=== PATIENT | male | born 1980 | race Caucasian/White ===

== ENCOUNTER 2024-06-07 17:18 | Emergency (ER) | payer SELFPAY ==
[~2024-06-07] VITALS: Ht 180.3 cm; Wt 99.8 kg
[2024-06-07 17:20] VITALS: PULSE 92; RESP 18; TEMP 98.2
[2024-06-07] MEDS ORDERED: TRAMADOL HCL 50 MG TAB PO ONE (18:00)
[2024-06-07] MEDS ORDERED: IBUPROFEN800 MG PO (18:42)
[2024-06-07] MEDS ORDERED: PEPCID20 MG PO (18:47)
[2024-06-07 19:25] VITALS: BP 121/62; PULSE 71; RESP 18; TEMP 98.2; O2SAT 98
== END 2024-06-07 19:29 | disposition home or self-care (01) ==
LOC: FSED 17:21
DX: M25.561 Pain in right knee (principal); W20.8XXA Other cause of strike by thrown, projected or falling object, initial encounter; Y92.89 Other specified places as the place of occurrence of the external cause; I10 Essential (primary) hypertension
CPT/HCPCS: 99283